=== PATIENT | male | born 1980 | race Two or more races ===

== ENCOUNTER 2023-04-19 07:24 | Day surgery (SDC) | payer OTHER | END 2023-04-19 12:55 | disposition home or self-care (01) | LOC: AMB-ENDOS 07:24 | PROVIDERS: ATTEND Internal Medicine Gastroenterology | DX: K62.5 Hemorrhage of anus and rectum (principal); K64.8 Other hemorrhoids; Z88.0 Allergy status to penicillin; Z20.822 Contact with and (suspected) exposure to COVID-19 ==